=== PATIENT | female | born 1950 | race Caucasian/White ===

== ENCOUNTER 2019-09-13 21:14 | Emergency (ER) | payer MEDICARE, SELFPAY ==
[2019-09-13 21:14] VITALS: BP 156/80; PULSE 75; RESP 16; TEMP 37; O2SAT 98; BMI 25.8
--- NOTE | 2019-09-13 22:10 | RAD_ITS ---
STUDY: X-RAY - LUMBAR SPINE REASON FOR EXAM: Female, 68 years old. Low back pain status post fall tonight TECHNIQUE: 3 view(s) of the lumbar spine were obtained. COMPARISON: None FINDINGS: Normal lumbar lordosis. There is no substantial scoliosis. There is a normal alignment of the vertebrae. Normal vertebral bodies and endplates. There is multi-level degenerative disc disease with multi-level disc space narrowing. The soft tissue structures are unremarkable. RAD/Lumbar Spine 2 or 3 Views IMPRESSION: No fracture Electronically Signed: Orlin Juares MD at 23:22 EST , Service support ,
--- NOTE | 2019-09-13 22:10 | RAD_ITS ---
STUDY: X-RAY - LEFT KNEE REASON FOR EXAM: Female, 68 years old. Left knee injury tonight TECHNIQUE: 4 view(s) of the knee. COMPARISON: None. FINDINGS: Normal visualized distal femur. Normal visualized proximal tibia and fibula. Normal proximal tibiofibular articulation. Normal medial femorotibial compartment. Normal lateral femorotibial compartment. Normal patellofemoral articulation. The soft tissue structures are unremarkable. RAD/Knee 4 or More Views IMPRESSION: Normal x-ray examination of the knee. Electronically Signed: Orlin Juares MD at 23:14 EST , Service support ,
--- NOTE | 2019-09-13 22:10 | RAD_ITS ---
STUDY: X-RAY - PELVIS AND LEFT HIP REASON FOR EXAM: Female, 68 years old. : Injured left TECHNIQUE: 3 views of the pelvis and hip. COMPARISON: None. FINDINGS: There is a non-specific bowel gas pattern. Normal visualized soft tissue structures. Normal bilateral iliac wings, sacroiliac joints and visualized sacrum. Normal bilateral superior and inferior pubic rami. Normal pubic symphysis. Normal bilateral ischial tuberosities. Normal visualized femoral head. Normal acetabulum. is severe articular joint space narrowing of the hip. RAD/HIP, UNI W/ Pelvis 2-3 Views IMPRESSION: Severe DJD left hip. No fracture. Electronically Signed: Orlin Juares MD at 23:18 EST , Service support ,
--- NOTE | 2019-09-13 22:32 | ED.DCSUM_ITS ---
- ER Visit Summary Date of Service: 09/13/19 Chief Complaint: Fall History of Present Illness: The patient is a 68 F who presents after a fall that occurred today. Patient states she tripped over a mat that her cat uses to scratch. Patient states she fell and landed on her left knee and hip. Patient states her pain is worse with movement. Patient describes her pain as sharp and burning. Patient denies any head injury or loss of consciousness. Patient denies any paresthesias or weakness. Patient states she has been having some pain in her left hip for a while but after the fall tonight it became much worse. Physical Examination: Vital signs are stable. Patient is afebrile. Patient is in no acute distress. Oral mucosa is pink and moist. Neck is supple. Trachea is midline. There is no JVD. Musculoskeletal exam reveals tenderness over the left hip and left knee. There is good range of motion of the left lower extremity with internal and external rotation. There are no deformities noted. There is pain with flexion of the left hip and left knee. Extensor mechanism is intact. Pedal pulses are equal bilaterally. Sensation was intact to light touch bilateral and lower extremities. Cranial nerves II through XII are intact. There are no focal neuro deficits noted. Test Results: X-rays of the left knee and left hip were obtained. There is no acute fracture noted. X-rays of the lumbar spine were obtained. There are some degenerative changes but no acute fracture. These were interpreted by the radiologist and reviewed by myself. Emergency Department Course and Treatment: Patient requested to take her own Tylenol. Patient was feeling better on reevaluation. Patient was instructed to use ice to the areas. Patient was instructed to follow-up with her primary care physician in 5 to 7 days. Patient was instructed to continue Tylenol as needed for pain. Patient understood and was agreeable with the plan. All questions were answered. Disposition: Discharge home Impression: 1. Left knee contusion 2. Left hip strain This note was generated with [employer] dictation software. It may contain incorrect words, spelling, and punctuation that were not noted in review of the chart prior to signing ED Disposition - Plan for ED Patient: Disposition: Home or Assisted Living Diagnosis: Contusion of left knee, initial encounter, Strain of left hip Instructions: CONTUSION, Lower Extremity, FALL, Mechanical, Hip Strain, Fall Prevention Referrals: Remington Downey MD [STAFF PHYSICIAN] - 5-7 Days
== END 2019-09-13 23:35 | disposition home or self-care (01) ==
PROVIDERS: Emergency Provider Emergency Medicine; Family Provider Internal Medicine; PCP Internal Medicine
DX: S76.012A Strain of muscle, fascia and tendon of left hip, initial encounter (principal); S80.02XA Contusion of left knee, initial encounter; W18.09XA Striking against other object with subsequent fall, initial encounter
CPT/HCPCS: 72100; 73502; 73564; 99283